=== PATIENT | male | born 1980 | race Caucasian/White ===

== ENCOUNTER 2020-04-01 23:36 | Inpatient (IN) | payer BC, SELFPAY ==
[2020-04-01] MEDS ORDERED: Boostrix 0.5 ML (Tdap) VIAL ONE (23:45)
[2020-04-01] MEDS ORDERED: Calcium Chloride 1 GM/10 ML Abboject SYRINGE ONE (23:50)
[2020-04-01 23:55] LABS: #Basophils 0.1 thou/uL (0.0-0.2); #Eosinphils 0.4 thou/uL (0.0-0.7); #Lymphocytes 3.3 thou/uL (1.20-3.40); #Monocytes 0.4 thou/uL (0.11-0.59); #Neutrophils 3.4 thou/uL (1.40-6.50); %Eosinophils 5.4 % (0.0-10.0); %Lymphocytes 43.3 % (21.0-51.0); %Neutrophils 45.2 % (42.0-75.0); Mean Corpuscular HGB CONC 33.7 g/dL (32.0-36.0); Mean Corpuscular Hemoglobin 33.3 pg (27.0-31.0); Mean Corpuscular Volume 98.8 fL (78.0-98.0); Mean Platelet Volume 8.3 fL (7.4-10.4); Platelet Count 163 thou/uL (130-400); RBC Distribution Width 13.1 % (11.5-14.5); Red Blood Cell (RBC) Count 3.91 mill/uL (4.70-6.10); White Blood Cell (WBC) Count 7.5 thou/uL (4.8-10.8)
[2020-04-02] MEDS ORDERED: Dextrose 5% in Water 1,000 ML IV PRN (00:02)
[2020-04-02] MEDS ORDERED: Dextrose 50% Abboject 50 ML SYRINGE SLOW IVP PRN (00:02)
[2020-04-02 00:06] LABS: INR-International Normal Ratio 1.2; PTT 24.7 sec (22.9-36.1); Prothrombin Time 15.7 sec (12.0-14.7)
[2020-04-02 00:11] LABS: ALT (SGPT) 13 U/L (8-55); AST (SGOT) 17 U/L (5-34); Albumin 2.3 g/dL (3.5-5.0); Alkaline Phosphatase 46 U/L (40-110); Anion Gap 19 mmol/L (10-20); BUN (Urea Nitrogen) 12 mg/dL (8.9-20.6); Bilirubin, Total Less than 0.2 mg/dL (0.2-1.2); Calc. Creatinine Clearance 0 mL/min (70-130); Calcium 6.8 mg/dL (7.8-10.44); Carbon Dioxide 14 mmol/L (22-29); Chloride 112 mmol/L (98-107); Globulin 1.4 g/dL (2.4-3.5); Glucose 254 mg/dL (70-105); Potassium 5.4 mmol/L (3.5-5.1); Protein, Total 3.7 g/dL (6.0-8.3); Sodium 140 mmol/L (136-145)
[2020-04-02 00:14] LABS: Lactic Acid 6.8 mmol/L (0.5-2.2)
[2020-04-02] MEDS ORDERED: Heparin 10,000 UNITS/ 10 ML VIAL ONE ×2 (00:17→03:05)
[2020-04-02 00:33] LABS: Bacteria/HPF None Seen HPF (None Seen); Bilirubin Negative (Negative); Blood, Urine Negative (Negative); Clarity Clear (Clear); Glucose, Urine (Dipstick) Normal (Negative); Ketone, Urine Negative (Negative); Leukocyte Negative Leu/uL (Negative); Nitrite Negative (Negative); Protein, Urine (Dipstick) Negative (Neg-Trace); RBC/HPF 0-3 HPF (0-3); Specific Gravity, Urine 1.002 (1.002-1.036); Squamous Epithelial None Seen HPF (0-3); Urobilinogen Normal mg/dL (Less than 2); WBC/HPF None Seen HPF (0-3); pH, Urine 6.5 (5.0-9.0)
[2020-04-02] MEDS ORDERED: Sodium Bicarb 50 MEQ/50 ML Abboject 8.4% SYRINGE ONE (00:42)
[2020-04-02] MEDS ORDERED: Heparin 5,000 UNITS/ML VIAL ONE (00:47)
[2020-04-02] MEDS ORDERED: PHENYLEPHRINE-NS 100 MCG/ML 10 ML SYRINGE ONE ×2 (01:14→10:34)
[2020-04-02] MEDS ORDERED: Vecuronium 10 MG VIAL ONE ×6 (01:14→10:34)
[2020-04-02] MEDS ORDERED: Phenylephrine 10 MG/ML VIAL ONE (01:15)
[2020-04-02 01:35] LABS: SARS-CoV-2 NAA Rapid Test Not Detected (NotDetected)
[2020-04-02 01:44] LABS: Amphetamine Not Detected (NotDetected); Barbiturates Screen Not Detected (NotDetected); Benzodiazepine Screen Not Detected (NotDetected); Cocaine Metabolite Screen Not Detected (NotDetected); Medtox Control Line Valid? VALID (VALID); Medtox Reader # READER 4; Methadone Not Detected (NotDetected); Methamphetamine Not Detected (NotDetected); Opiate Screen Not Detected (NotDetected); Oxycodone Screen Not Detected (NotDetected); Phencyclidine (PCP) Not Detected (NotDetected); THC/Cannabinoid Screen Not Detected (NotDetected); Tricyclic Screen Not Detected (NotDetected)
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
[2020-04-02] MEDS ORDERED: Fentanyl 250 MCG/5 ML VIAL ONE (02:35)
[2020-04-02] MEDS ORDERED: Midazolam HCl 5 mg/5 ml Vial ONE ×2 (02:36→05:46)
[2020-04-02] MEDS ORDERED: Norepinephrine 4 MG/4 ML VIAL ONE (03:00)
[2020-04-02] MEDS ORDERED: Ventilator Sedation Protocol 1 EACH FS SCH (04:14)
[2020-04-02] MEDS ORDERED: Fentanyl CADD 100 ML IV SCH (04:15)
[2020-04-02] MEDS ORDERED: Morphine 2 MG/ML VIAL SLOW IVP PRN (04:15)
[2020-04-02] MEDS ORDERED: DISCONTINUE PREVIOUS NARCOTIC PAIN MEDICATIONS AND BENZODIAZEPINES FS SCH (04:15)
[2020-04-02] MEDS ORDERED: Propofol BOLUS 1,000 MG/100 ML VIAL IV PRN (04:15)
[2020-04-02] MEDS ORDERED: Fentanyl BOLUS 250 ML IVPB PRN (04:15)
[2020-04-02] MEDS ORDERED: Propofol 1,000 MG/100 ML VIAL IV PRN (04:15)
[2020-04-02] MEDS ORDERED: Lorazepam 2 MG/ML VIAL SLOW IVP PRN (04:15)
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
[2020-04-02] MEDS ORDERED: Fentanyl 100 MCG/2 ML VIAL ONE (05:46)
[2020-04-02] MEDS ORDERED: Fentanyl CADD 100 ML ONE ×2 (06:59→22:52)
[2020-04-02] MEDS: Sodium Chloride 0.9% 1,000 ML IV SCH ×4 (07:08→22:54)
[2020-04-02 07:33] LABS: Anion Gap 13 mmol/L (10-20); BUN (Urea Nitrogen) 11 mg/dL (8.9-20.6); Calc. Creatinine Clearance 0 mL/min (70-130); Calcium 7.3 mg/dL (7.8-10.44); Carbon Dioxide 22 mmol/L (22-29); Chloride 111 mmol/L (98-107); Glucose 124 mg/dL (70-105); Potassium 3.9 mmol/L (3.5-5.1); Sodium 142 mmol/L (136-145)
--- NOTE | 2020-04-02 07:44 | RAD ---
PORTABLE CHEST: Date: 04/02/2020 PROVIDED CLINICAL HISTORY: Respiratory failure. FINDINGS: Comparison made with examination of 04/01/2020. Interval placement of two left-sided chest tubes. The more inferiorly located chest tube is not entir sissy included, with nonvisualization of the proximal side hole lucency, which could be extrathoracic. Support apparatus is otherwise unchanged. No focal consolidation, pleural fluid, or pneumothorax appa rent with rotation due to the spine nature of the study. IMPRESSION: Chest tube positioning as described. POS: LORENZO
[2020-04-02 07:47] VITALS: BMI 26.5
[2020-04-02 08:41] LABS: Hemoglobin 11.1 g/dL (14.0-18.0); Mean Corpuscular HGB CONC 34.8 g/dL (32.0-36.0); Mean Corpuscular Hemoglobin 31.6 pg (27.0-31.0); Mean Corpuscular Volume 90.6 fL (78.0-98.0); Mean Platelet Volume 8.7 fL (7.4-10.4); Platelet Count 70 thou/uL (130-400); RBC Distribution Width 15.2 % (11.5-14.5); Red Blood Cell (RBC) Count 3.51 mill/uL (4.70-6.10); White Blood Cell (WBC) Count 3.7 thou/uL (4.8-10.8)
[2020-04-02] MEDS: Famotidine/PF 20 mg/2ml Vial SLOW IVP SCH ×2 (08:58→20:13)
[2020-04-02 09:46] LABS: INR-International Normal Ratio 1.2; PTT 28.6 sec (22.9-36.1); Prothrombin Time 15.2 sec (12.0-14.7)
--- NOTE | 2020-04-02 09:49 | RAD ---
PORTABLE CHEST: 04/02/20 PROVIDED CLINICAL HISTORY: Post central line. COMPARISON: Examination from earlier same date. FINDINGS: Interval placement of left-sided subclavian central line, the tip of which terminates in the region o f the expected brachiocephalic confluence. The supine nature of the examination is not sensitive for detection of pneumothorax. The right hemithorax is not entirely included. Additional significant inte rval change with respect to prior is not apparent. IMPRESSION: As above. POS: LORENZO
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
[2020-04-02] MEDS ORDERED: Piperacillin/Tazobactam 3.375 GM in Sodium Chloride 0.9% 100 ML IVPB SCH (10:45)
[2020-04-02 11:04] LABS: #Lymphocytes 0.5 thou/uL (1.20-3.40); #Monocytes 0.4 thou/uL (0.11-0.59); #Neutrophils 2.8 thou/uL (1.40-6.50); %Basophils 0.2 % (0.0-1.0); %Eosinophils 0.4 % (0.0-10.0); %Lymphocytes 14.4 % (21.0-51.0); %Monocytes 9.7 % (0.0-10.0); %Neutrophils 75.4 % (42.0-75.0); Anisocytosis SLIGHT = 6-15 cells (100X) (0-5/hpf); MDiff Complete? YES; Platelet Morphology Comment Appears Decreased
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
[2020-04-02] MEDS ORDERED: Lactated Ringer's 1,000 ML IV SCH (13:15)
[2020-04-02 13:45] LABS: Hemoglobin 11.1 g/dL (14.0-18.0); Mean Corpuscular HGB CONC 34.2 g/dL (32.0-36.0); Mean Corpuscular Hemoglobin 30.9 pg (27.0-31.0); Mean Corpuscular Volume 90.5 fL (78.0-98.0); Mean Platelet Volume 9.4 fL (7.4-10.4); Platelet Count 74 thou/uL (130-400); RBC Distribution Width 15.8 % (11.5-14.5); Red Blood Cell (RBC) Count 3.59 mill/uL (4.70-6.10); White Blood Cell (WBC) Count 8.2 thou/uL (4.8-10.8)
[2020-04-02] MEDS: Piperacillin/Tazobactam 3.375 GM in Sodium Chloride 0.9% 100 ML IVPB SCH ×2 (17:29→23:10)
[2020-04-02 18:23] LABS: Hemoglobin 11.1 g/dL (14.0-18.0); Mean Corpuscular Hemoglobin 31.8 pg (27.0-31.0); Mean Corpuscular Volume 90.9 fL (78.0-98.0); Mean Platelet Volume 9.5 fL (7.4-10.4); Platelet Count 63 thou/uL (130-400); RBC Distribution Width 15.4 % (11.5-14.5); White Blood Cell (WBC) Count 9.5 thou/uL (4.8-10.8)
[2020-04-02] MEDS ORDERED: Hydrocortisone Sod Succ/PF 100 mg/2 ml Vial IVP SCH (21:45)
[2020-04-03 00:20] LABS: Hemoglobin 9.2 g/dL (14.0-18.0); Mean Corpuscular HGB CONC 34.4 g/dL (32.0-36.0); Mean Corpuscular Hemoglobin 31.4 pg (27.0-31.0); Mean Corpuscular Volume 91.1 fL (78.0-98.0); Mean Platelet Volume 9.9 fL (7.4-10.4); Platelet Count 63 thou/uL (130-400); RBC Distribution Width 15.7 % (11.5-14.5); Red Blood Cell (RBC) Count 2.94 mill/uL (4.70-6.10); White Blood Cell (WBC) Count 9.5 thou/uL (4.8-10.8)
[2020-04-03 04:58] LABS: Anion Gap 11 mmol/L (10-20); BUN (Urea Nitrogen) 20 mg/dL (8.9-20.6); Calc. Creatinine Clearance 102 mL/min (70-130); Calcium 6.5 mg/dL (7.8-10.44); Carbon Dioxide 26 mmol/L (22-29); Chloride 111 mmol/L (98-107); Glucose 132 mg/dL (70-105); Magnesium 1.3 mg/dL (1.6-2.6); Phosphorus 2.5 mg/dL (2.3-4.7); Potassium 4.7 mmol/L (3.5-5.1); Sodium 143 mmol/L (136-145)
[2020-04-03] MEDS: Sodium Chloride 0.9% 1,000 ML IV SCH ×3 (05:30→17:24)
[2020-04-03] MEDS: Piperacillin/Tazobactam 3.375 GM in Sodium Chloride 0.9% 100 ML IVPB SCH ×4 (05:46→23:20)
[2020-04-03] MEDS: Hydrocortisone Sod Succ/PF 100 mg/2 ml Vial IVP SCH ×3 (05:46→21:57)
[2020-04-03 05:50] LABS: Band 32 % (5-11); Hemoglobin 8.5 g/dL (14.0-18.0); Lymphocytes 7 % (21-51); MDiff Complete? YES; Mean Corpuscular HGB CONC 33.6 g/dL (32.0-36.0); Mean Corpuscular Volume 92.2 fL (78.0-98.0); Mean Platelet Volume 10.2 fL (7.4-10.4); Metamyelocyte 2 % (0-0); Monocytes 4 % (0-10); Myelocyte 1 % (0-0); Neutrophil 54 % (42-75); Platelet Count 65 thou/uL (130-400); Platelet Morphology Comment Appears Decreased; Red Blood Cell (RBC) Count 2.75 mill/uL (4.70-6.10); White Blood Cell (WBC) Count 8.7 thou/uL (4.8-10.8)
[2020-04-03] MEDS ORDERED: Magnesium Sulfate 3 GM in Sodium Chloride 0.9% 250 ML 250 ML IVPB SCH (06:00)
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
[2020-04-03] MEDS: Famotidine/PF 20 mg/2ml Vial SLOW IVP SCH ×2 (08:12→21:57)
--- NOTE | 2020-04-03 08:28 | RAD ---
Portable frontal chest radiograph: 04/03/2020 COMPARISON: 04/02/2020 HISTORY: Respiratory failure FINDINGS: There are cutaneous clarissa overlying the inferior left hemithorax/left upper quadrant. The re are 2 left-sided chest tubes in place. There is no pneumothorax seen on either side. Stable endotracheal tube and nasogastric tube. Stable nonspecific increased density in the medial left lung base. IMPRESSION: No significant interval change.
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
[2020-04-03] MEDS ORDERED: Fentanyl CADD 100 ML ONE (17:19)
[2020-04-03 22:09] LABS: #Lymphocytes 0.9 thou/uL (1.20-3.40); #Monocytes 0.4 thou/uL (0.11-0.59); #Neutrophils 6.1 thou/uL (1.40-6.50); %Basophils 0.3 % (0.0-1.0); %Eosinophils 0.1 % (0.0-10.0); %Monocytes 4.9 % (0.0-10.0); %Neutrophils 82.6 % (42.0-75.0); Hemoglobin 7.4 g/dL (14.0-18.0); Mean Corpuscular HGB CONC 34.2 g/dL (32.0-36.0); Mean Corpuscular Hemoglobin 31.7 pg (27.0-31.0); Mean Corpuscular Volume 92.9 fL (78.0-98.0); Mean Platelet Volume 9.6 fL (7.4-10.4); Platelet Count 59 thou/uL (130-400); RBC Distribution Width 15.6 % (11.5-14.5); Red Blood Cell (RBC) Count 2.33 mill/uL (4.70-6.10); White Blood Cell (WBC) Count 7.4 thou/uL (4.8-10.8)
[2020-04-03 22:36] LABS: Anion Gap 9 mmol/L (10-20); BUN (Urea Nitrogen) 16 mg/dL (8.9-20.6); Calc. Creatinine Clearance 109 mL/min (70-130); Carbon Dioxide 25 mmol/L (22-29); Chloride 116 mmol/L (98-107); Glucose 103 mg/dL (70-105); Magnesium 2.1 mg/dL (1.6-2.6); Phosphorus 1.2 mg/dL (2.3-4.7); Potassium 4.1 mmol/L (3.5-5.1); Sodium 146 mmol/L (136-145)
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
[2020-04-03] MEDS: Lactated Ringer's 1,000 ML IV SCH (23:10)
[2020-04-03] MEDS ORDERED: Potassium Phosphate 20 MMOL in Sodium Chloride 0.9% 250 ML 250 ML IVPB SCH (23:30)
[2020-04-04 05:10] LABS: #Lymphocytes 0.8 thou/uL (1.20-3.40); #Monocytes 0.4 thou/uL (0.11-0.59); #Neutrophils 5.6 thou/uL (1.40-6.50); %Basophils 0.1 % (0.0-1.0); %Eosinophils 0.2 % (0.0-10.0); %Lymphocytes 11.3 % (21.0-51.0); %Monocytes 5.4 % (0.0-10.0); %Neutrophils 83.1 % (42.0-75.0); Hemoglobin 7.9 g/dL (14.0-18.0); Mean Corpuscular HGB CONC 30.7 g/dL (32.0-36.0); Mean Corpuscular Hemoglobin 29.2 pg (27.0-31.0); Mean Corpuscular Volume 95.3 fL (78.0-98.0); Mean Platelet Volume 9.9 fL (7.4-10.4); Platelet Count 56 thou/uL (130-400); RBC Distribution Width 15.6 % (11.5-14.5); White Blood Cell (WBC) Count 6.7 thou/uL (4.8-10.8)
[2020-04-04 05:54] LABS: Anion Gap 9 mmol/L (10-20); BUN (Urea Nitrogen) 16 mg/dL (8.9-20.6); Calc. Creatinine Clearance 125 mL/min (70-130); Calcium 7.3 mg/dL (7.8-10.44); Carbon Dioxide 26 mmol/L (22-29); Chloride 113 mmol/L (98-107); Glucose 98 mg/dL (70-105); Magnesium 2.2 mg/dL (1.6-2.6); Phosphorus 1.7 mg/dL (2.3-4.7); Potassium 4.2 mmol/L (3.5-5.1); Sodium 144 mmol/L (136-145)
[2020-04-04] MEDS: Hydrocortisone Sod Succ/PF 100 mg/2 ml Vial IVP SCH ×3 (06:15→21:01)
[2020-04-04] MEDS ORDERED: Sodium Phosphate 30 MMOL in Sodium Chloride 0.9% 250 ML 250 ML IVPB SCH (06:15)
[2020-04-04] MEDS: Piperacillin/Tazobactam 3.375 GM in Sodium Chloride 0.9% 100 ML IVPB SCH ×3 (06:16→17:50)
[2020-04-04] MEDS: Lactated Ringer's 1,000 ML IV SCH ×3 (06:26→22:41)
[2020-04-04] MEDS: Famotidine/PF 20 mg/2ml Vial SLOW IVP SCH ×2 (08:26→21:00)
[2020-04-04] MEDS ORDERED: Thiamine HCl 200 MG/2 ML VIAL SLOW IVP SCH (09:00)
[2020-04-04] MEDS ORDERED: Rocuronium Bromide 10 MG/ML (10ML VIAL) ONE (09:13)
[2020-04-04] MEDS ORDERED: ePHEDrine 50 MG/ML VIAL ONE (09:13)
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
[2020-04-04] MEDS ORDERED: Fentanyl 100 MCG/2 ML VIAL ONE (10:28)
[2020-04-04] MEDS ORDERED: Midazolam HCl 5 mg/5 ml Vial ONE (10:32)
[2020-04-04] MEDS ORDERED: Fentanyl CADD 100 ML ONE (14:22)
[2020-04-04] MEDS: Oxazepam 10 MG CAP PO SCH ×2 (14:25→21:01)
--- NOTE | 2020-04-04 14:59 | RAD ---
Exam: 1 view abdomen HISTORY: Evaluate Dobbhoff feeding tube placement COMPARISON: 04/04/2020 chest radiograph FINDINGS: Interval placement of a Dobbhoff feeding tube. Cyst appears be in the proximal jejunum. James ogastric tube is identified. IMPRESSION: Dobbhoff feeding tube as above.
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
[2020-04-05] MEDS: Piperacillin/Tazobactam 3.375 GM in Sodium Chloride 0.9% 100 ML IVPB SCH ×5 (00:30→23:56)
[2020-04-05 05:50] LABS: #Lymphocytes 0.6 thou/uL (1.20-3.40); #Monocytes 0.3 thou/uL (0.11-0.59); #Neutrophils 4.1 thou/uL (1.40-6.50); %Basophils 0.3 % (0.0-1.0); %Eosinophils 0.8 % (0.0-10.0); %Lymphocytes 12.5 % (21.0-51.0); %Monocytes 6.4 % (0.0-10.0); Hemoglobin 9.6 g/dL (14.0-18.0); Mean Corpuscular Hemoglobin 31.3 pg (27.0-31.0); Mean Corpuscular Volume 94.9 fL (78.0-98.0); Mean Platelet Volume 10.2 fL (7.4-10.4); Platelet Count 71 thou/uL (130-400); RBC Distribution Width 15.3 % (11.5-14.5); Red Blood Cell (RBC) Count 3.06 mill/uL (4.70-6.10); White Blood Cell (WBC) Count 5.1 thou/uL (4.8-10.8)
[2020-04-05 06:05] LABS: Anion Gap 11 mmol/L (10-20); BUN (Urea Nitrogen) 14 mg/dL (8.9-20.6); Calc. Creatinine Clearance 152 mL/min (70-130); Calcium 7.3 mg/dL (7.8-10.44); Carbon Dioxide 27 mmol/L (22-29); Chloride 112 mmol/L (98-107); Glucose 105 mg/dL (70-105); Potassium 3.9 mmol/L (3.5-5.1); Sodium 146 mmol/L (136-145)
[2020-04-05] MEDS: Oxazepam 10 MG CAP PO SCH ×3 (06:11→21:26)
[2020-04-05] MEDS: Hydrocortisone Sod Succ/PF 100 mg/2 ml Vial IVP SCH (06:13)
[2020-04-05] MEDS: Lactated Ringer's 1,000 ML IV SCH (06:19)
[2020-04-05 06:25] LABS: Phosphorus 1.4 mg/dL (2.3-4.7)
[2020-04-05] MEDS ORDERED: Potassium Phosphate 30 MMOL in Sodium Chloride 0.9% 250 ML 250 ML IVPB SCH (06:34)
[2020-04-05] MEDS: Famotidine/PF 20 mg/2ml Vial SLOW IVP SCH (08:25)
[2020-04-05] MEDS: Folic Acid 1 MG TAB PO SCH (08:25)
[2020-04-05] MEDS: Multivitamin W/ Minerals 1 TAB PO SCH (08:25)
[2020-04-05] MEDS: Thiamine 100 MG TAB PO SCH (08:25)
--- NOTE | 2020-04-05 08:37 | RAD ---
CHEST 1 VIEW: Date: 04/05/2020 INDICATION: History of left-sided chest tubes. COMPARISON: Prior exam dated 04/04/2020. FINDINGS: Left-sided thoracostomy tubes are unchanged. No pneumothorax is evident. The patient remains intubate d with gastric catheter placement. There has been interval placement of a Dobbhoff feeding tube tip t hat projects below the left hemidiaphragm and beyond the field of view. Osseous structures reveal no definite acute abnormality. IMPRESSION: 1. Stable left-sided thoracostomy tubes without evidence of pneumothorax. 2. Interval placement of Dobbhoff feeding tube tip. 3. ET tube and gastric catheter are unchanged. POS: [facility]
[2020-04-05] MEDS: Famotidine 20 MG TAB PO SCH ×2 (09:09→21:26)
[2020-04-05] MEDS: Enoxaparin Sodium 40 MG/0.4 ML SYRINGE SC SCH (09:13)
[2020-04-05] MEDS ORDERED: Hydrochlorothiazide 25 MG TAB PO SCH (10:15)
[2020-04-05] MEDS ORDERED: Furosemide 20 MG/2 ML VIAL SLOW IVP SCH (10:15)
[2020-04-05] MEDS ORDERED: D5 1/2 NS w/20 mEq KCL 1,000 ML IV SCH (10:15)
[2020-04-05] MEDS: D5 1/2 NS w/20 mEq KCL 1,000 ML IV SCH ×2 (10:24→23:57)
[2020-04-05] MEDS: Acetaminophen 650 MG/20.3 ML UDCUP PO SCH ×3 (11:28→23:55)
[2020-04-05] MEDS ORDERED: Naloxone HCl 0.4 mg/ml Vial ONE (11:41)
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
[2020-04-05 12:42] LABS: Actual Bicarbonate (HCO3a) 33.9 mEq/L (22-28); Base Excess (BEa) 1.8 mEq/L (-2.0 to +3.0); Calcium, Ionized (arterial) 1.01 mmol/L (1.12-1.30); Carboxyhemoglobin (COHb) 0.6 gm% (0.0-3.0); Hemoglobin (Hb) 9.6 g/dL (14.0-18.0); O2 Tension (PaO2), arterial 89.9 mmHg (80.0-100.0); Potassium - ABG Lab 4.27 mmol/L (3.70-5.30); pH, Arterial 7.07 (7.35-7.45)
[2020-04-05 12:43] LABS: Puncture Site Arterial Line
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
--- NOTE | 2020-04-05 23:06 | PDOC.BPN ---
- Brief Progress Note Encounter Date: 04/05/20 Encounter Time: 20:30 Patient was seen during evening rounds in the critical care unit resting comfortably in no distress. He was extubated earlier today and became difficult to arouse requiring Narcan. He improved with a short period of Bipap. No issues reported by the patients nurse. He arouses easily but falls back asleep. Vital signs are stable and patient is afebrile. Urinary output is adequate for age and weight. Abdominal Vac is working appropriately . His abdomen is distended but soft without any peritoneal signs. Plan of care is unchanged Early in the morning was notified by the nurse that he pulled out his dobhoff tube but his NGT remained in place.
[2020-04-06] MEDS: Ondansetron PF 4 MG/2 ML Vial IVP PRN (03:08)
[2020-04-06] MEDS: Piperacillin/Tazobactam 3.375 GM in Sodium Chloride 0.9% 100 ML IVPB SCH ×4 (05:19→23:24)
[2020-04-06] MEDS: Acetaminophen 650 MG/20.3 ML UDCUP PO SCH ×2 (05:19→13:17)
[2020-04-06] MEDS: Oxazepam 10 MG CAP PO SCH ×3 (05:20→19:12)
[2020-04-06 07:31] LABS: #Eosinphils 0.1 thou/uL (0.0-0.7); #Lymphocytes 0.8 thou/uL (1.20-3.40); #Monocytes 0.8 thou/uL (0.11-0.59); #Neutrophils 7.2 thou/uL (1.40-6.50); %Eosinophils 1.5 % (0.0-10.0); %Lymphocytes 8.4 % (21.0-51.0); Hemoglobin 8.1 g/dL (14.0-18.0); Mean Corpuscular HGB CONC 34.2 g/dL (32.0-36.0); Mean Corpuscular Hemoglobin 33.6 pg (27.0-31.0); Mean Corpuscular Volume 98.1 fL (78.0-98.0); Platelet Count 122 thou/uL (130-400); RBC Distribution Width 14.9 % (11.5-14.5); White Blood Cell (WBC) Count 8.9 thou/uL (4.8-10.8)
[2020-04-06 07:43] LABS: Anion Gap 10 mmol/L (10-20); BUN (Urea Nitrogen) 17 mg/dL (8.9-20.6); Calc. Creatinine Clearance 152 mL/min (70-130); Calcium 7.7 mg/dL (7.8-10.44); Carbon Dioxide 31 mmol/L (22-29); Chloride 112 mmol/L (98-107); Glucose 111 mg/dL (70-105); Magnesium 2.1 mg/dL (1.6-2.6); Phosphorus 1.9 mg/dL (2.3-4.7); Potassium 3.9 mmol/L (3.5-5.1); Sodium 149 mmol/L (136-145)
[2020-04-06] MEDS ORDERED: Dextrose 5% in Water 1,000 ML IV SCH (08:15)
[2020-04-06] MEDS ORDERED: Potassium Phosphate 30 MMOL in Sodium Chloride 0.9% 250 ML 250 ML IVPB SCH (08:15)
--- NOTE | 2020-04-06 08:31 | RAD ---
Exam: Chest one view HISTORY:Left chest tube placement. Comparison: 04/04/2020, 04/05/2020 FINDINGS: Lines and tubes: Redemonstration of a nasogastric tube and Dobbhoff feeding tube. Stable 2 left-sided chest tube. Interval removal of endotracheal tube. Cardiac silhouette: Normal Aorta: Unremarkable Pulmonary vessels: Normal Costophrenic angles: Left-sided pleural effusion LUNGS: Parenchymal changes predominantly in the lung bases, left greater than right Pneumothorax: None Osseous abnormalities: None IMPRESSION: No significant interval change.
[2020-04-06] MEDS: Enoxaparin Sodium 40 MG/0.4 ML SYRINGE SC SCH (09:54)
[2020-04-06] MEDS: Famotidine 20 MG TAB PO SCH ×3 (09:55→20:16)
[2020-04-06] MEDS: Thiamine 100 MG TAB PO SCH ×2 (09:55→13:17)
[2020-04-06] MEDS: Folic Acid 1 MG TAB PO SCH ×2 (09:55→13:17)
[2020-04-06] MEDS: Multivitamin W/ Minerals 1 TAB PO SCH ×2 (09:55→13:17)
[2020-04-06] MEDS: Hydrochlorothiazide 25 MG TAB PO SCH ×2 (09:55→13:17)
[2020-04-06] MEDS ORDERED: Haloperidol Lactate 5 MG/ML VIAL ONE (12:58)
[2020-04-06] MEDS ORDERED: Haloperidol Lactate 5 MG/ML VIAL IM SCH (13:00)
[2020-04-06] MEDS: Dextrose 5% in Water 1,000 ML IV SCH (15:04)
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
[2020-04-06 17:20] LABS: #Basophils 0.1 thou/uL (0.0-0.2); #Lymphocytes 0.8 thou/uL (1.20-3.40); #Monocytes 0.7 thou/uL (0.11-0.59); %Basophils 0.7 % (0.0-1.0); %Eosinophils 0.4 % (0.0-10.0); %Lymphocytes 10.3 % (21.0-51.0); %Monocytes 9.6 % (0.0-10.0); Hemoglobin 7.7 g/dL (14.0-18.0); Mean Corpuscular HGB CONC 32.4 g/dL (32.0-36.0); Mean Corpuscular Hemoglobin 31.3 pg (27.0-31.0); Mean Corpuscular Volume 96.6 fL (78.0-98.0); Mean Platelet Volume 9.2 fL (7.4-10.4); Platelet Count 138 thou/uL (130-400); RBC Distribution Width 15.1 % (11.5-14.5); Red Blood Cell (RBC) Count 2.46 mill/uL (4.70-6.10); White Blood Cell (WBC) Count 7.6 thou/uL (4.8-10.8)
[2020-04-06] MEDS ORDERED: Lorazepam 2 MG/ML VIAL SLOW IVP SCH (18:15)
--- NOTE | 2020-04-06 18:20 | RAD ---
SUPINE ABDOMEN: 04/06/20 INDICATIONS: NG tube placement. COMPARISON: 04/04/20. FINDING/IMPRESSION: A Dobhoff type feeding tube passes through the EG junction and overlies the right abdomen in the lashanda on of the gastric antrum. Scattered gas and stool throughout the colon. There is some scattered small bowel gas which is nonspe cific. Postop changes with tubes and lines again noted. Apparent drainage tube overlying the left abdomen an d crossing the midline is unchanged in position. POS: AGW
[2020-04-06 18:32] LABS: Anion Gap 10 mmol/L (10-20); BUN (Urea Nitrogen) 15 mg/dL (8.9-20.6); Calc. Creatinine Clearance 144 mL/min (70-130); Calcium 7.6 mg/dL (7.8-10.44); Carbon Dioxide 31 mmol/L (22-29); Chloride 113 mmol/L (98-107); Glucose 127 mg/dL (70-105); Magnesium 2.1 mg/dL (1.6-2.6); Phosphorus 3.1 mg/dL (2.3-4.7); Potassium 3.5 mmol/L (3.5-5.1); Sodium 150 mmol/L (136-145)
[2020-04-06] MEDS ORDERED: Potassium Phosphate 15 MMOL in Sodium Chloride 0.9% 250 ML 250 ML IVPB SCH (18:45)
[2020-04-06] MEDS: RisperDAL Oral Solution 1 MG/ML UDCUP PO SCH (20:43)
--- NOTE | 2020-04-07 00:31 | PDOC.BPN ---
- Brief Progress Note Encounter Date: 04/06/20 Encounter Time: 20:30 Patient was seen during evening rounds in the critical care unit resting comfortably in no distress. He arouses easily but falls back asleep. He denies pain when asked. No issues reported by the patients nurse. Urinary output is adequate for age and weight. Abdomen is soft and wound vac is working appropriately. Vital signs are stable and patient is afebrile. Plan of care is unchanged
[2020-04-07] MEDS: Oxazepam 10 MG CAP PO SCH ×3 (01:14→18:44)
[2020-04-07] MEDS: Dextrose 5% in Water 1,000 ML IV SCH ×3 (02:28→20:17)
[2020-04-07 04:47] LABS: #Eosinphils 0.3 thou/uL (0.0-0.7); #Lymphocytes 1.1 thou/uL (1.20-3.40); #Monocytes 0.8 thou/uL (0.11-0.59); #Neutrophils 5.9 thou/uL (1.40-6.50); %Basophils 0.2 % (0.0-1.0); %Eosinophils 3.4 % (0.0-10.0); %Lymphocytes 13.7 % (21.0-51.0); %Neutrophils 72.8 % (42.0-75.0); Hemoglobin 7.4 g/dL (14.0-18.0); Mean Corpuscular HGB CONC 32.8 g/dL (32.0-36.0); Mean Corpuscular Hemoglobin 31.9 pg (27.0-31.0); Mean Corpuscular Volume 97.3 fL (78.0-98.0); Mean Platelet Volume 9.3 fL (7.4-10.4); Platelet Count 154 thou/uL (130-400); RBC Distribution Width 15.4 % (11.5-14.5); Red Blood Cell (RBC) Count 2.33 mill/uL (4.70-6.10); White Blood Cell (WBC) Count 8.1 thou/uL (4.8-10.8)
[2020-04-07 05:57] LABS: Anion Gap 14 mmol/L (10-20); BUN (Urea Nitrogen) 13 mg/dL (8.9-20.6); Calc. Creatinine Clearance 164 mL/min (70-130); Calcium 7.7 mg/dL (7.8-10.44); Carbon Dioxide 29 mmol/L (22-29); Chloride 111 mmol/L (98-107); Glucose 110 mg/dL (70-105); Phosphorus 2.3 mg/dL (2.3-4.7); Potassium 3.6 mmol/L (3.5-5.1); Sodium 150 mmol/L (136-145)
[2020-04-07] MEDS: Piperacillin/Tazobactam 3.375 GM in Sodium Chloride 0.9% 100 ML IVPB SCH (06:11)
[2020-04-07] MEDS ORDERED: Potassium Phosphate 15 MMOL in Sodium Chloride 0.9% 250 ML 250 ML IVPB SCH (09:00)
[2020-04-07] MEDS ORDERED: Hydrochlorothiazide 25 MG TAB PO SCH (09:00)
[2020-04-07] MEDS ORDERED: Furosemide 20 MG/2 ML VIAL SLOW IVP SCH (09:00)
[2020-04-07] MEDS: Morphine 4 MG/ML VIAL SLOW IVP PRN ×2 (09:32→16:18)
--- NOTE | 2020-04-07 09:37 | RAD ---
CHEST 1 VIEW: HISTORY: Chest tube evaluation. COMPARISON: Radiograph of prior day. FINDINGS: Left-sided thoracostomy tubes are in a similar location. No significant retraction. The more superi or left chest tube tip projects through the left lung apex. The more inferior chest tube on the left has the tip at the posterior left 8th rib. The weighted feeding tube tip is below the diaphragm out of the field of view. Surgical skin clarissa of the left upper quadrant of the abdomen. The enteric suction tube has been removed. There is some left basilar opacity which is very dense. IMPRESSION: 1. Trace left lateral pneumothorax. 2. Dense left basilar opacity with left upper abdominal quadrant skin clarissa, likely postsurgical c hange versus atelectasis. 3. Removal of the enteric suction tube. POS: HOME
[2020-04-07] MEDS: cloNIDine 0.1 MG TAB PO SCH ×3 (09:41→21:27)
[2020-04-07] MEDS: Folic Acid 1 MG TAB PO SCH (09:42)
[2020-04-07] MEDS: Famotidine 20 MG TAB PO SCH ×2 (09:42→20:09)
[2020-04-07] MEDS: Enoxaparin Sodium 40 MG/0.4 ML SYRINGE SC SCH (09:43)
[2020-04-07] MEDS: Thiamine 100 MG TAB PO SCH (09:43)
[2020-04-07] MEDS: Multivitamin W/ Minerals 1 TAB PO SCH (09:43)
[2020-04-07] MEDS: Acetaminophen W/ Codeine 5 ML UDCUP PO SCH ×3 (09:52→21:27)
[2020-04-07] MEDS: RisperDAL Oral Solution 1 MG/ML UDCUP PO SCH ×2 (10:23→20:10)
[2020-04-07] MEDS ORDERED: Acetaminophen 650 MG/20.3 ML UDCUP PO SCH (12:00)
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
--- NOTE | 2020-04-08 01:07 | PDOC.BPN ---
- Brief Progress Note Encounter Date: 04/07/20 Encounter Time: 22:15 Patient was seen during evening rounds in the critical care unit awake, alert to person, place and year. He is restless in 4 point soft restraints for safety. Nurse reports he has been hallucinating. Vital signs are stable, highest temp 99.8. Plan of care is unchanged Later in the night the pt became combative and broke through the restraints. Haldol was given.
[2020-04-08] MEDS: Oxazepam 10 MG CAP PO SCH (01:09)
[2020-04-08] MEDS: Morphine 4 MG/ML VIAL SLOW IVP PRN ×3 (01:28→21:28)
[2020-04-08] MEDS ORDERED: Haloperidol Lactate 5 MG/ML VIAL SLOW IVP SCH (03:00)
[2020-04-08 04:19] LABS: #Eosinphils 0.4 thou/uL (0.0-0.7); #Lymphocytes 1.2 thou/uL (1.20-3.40); #Monocytes 0.8 thou/uL (0.11-0.59); #Neutrophils 5.6 thou/uL (1.40-6.50); %Basophils 0.1 % (0.0-1.0); %Eosinophils 4.7 % (0.0-10.0); %Lymphocytes 15.4 % (21.0-51.0); %Monocytes 9.5 % (0.0-10.0); %Neutrophils 70.3 % (42.0-75.0); Hemoglobin 8.2 g/dL (14.0-18.0); Mean Corpuscular Hemoglobin 31.4 pg (27.0-31.0); Mean Corpuscular Volume 95.4 fL (78.0-98.0); Mean Platelet Volume 9.4 fL (7.4-10.4); Platelet Count 197 thou/uL (130-400); RBC Distribution Width 15.4 % (11.5-14.5); Red Blood Cell (RBC) Count 2.59 mill/uL (4.70-6.10)
[2020-04-08] MEDS: cloNIDine 0.1 MG TAB PO SCH ×4 (04:59→21:03)
[2020-04-08] MEDS: Acetaminophen W/ Codeine 5 ML UDCUP PO SCH ×4 (04:59→21:27)
[2020-04-08 05:15] LABS: Anion Gap 11 mmol/L (10-20); BUN (Urea Nitrogen) 11 mg/dL (8.9-20.6); Calc. Creatinine Clearance 173 mL/min (70-130); Carbon Dioxide 28 mmol/L (22-29); Chloride 103 mmol/L (98-107); Glucose 119 mg/dL (70-105); Magnesium 1.7 mg/dL (1.6-2.6); Phosphorus 2.8 mg/dL (2.3-4.7); Potassium 3.1 mmol/L (3.5-5.1); Sodium 139 mmol/L (136-145)
[2020-04-08] MEDS ORDERED: Magnesium 2 GM/50 ML 2 GM in Premix Bag 1 BAG IVPB SCH (07:45)
[2020-04-08] MEDS ORDERED: Potassium Phosphate 30 MMOL in Sodium Chloride 0.9% 250 ML 250 ML IVPB SCH (07:45)
[2020-04-08] MEDS: Famotidine 20 MG TAB PO SCH ×2 (08:49→20:19)
[2020-04-08] MEDS: Multivitamin W/ Minerals 1 TAB PO SCH (08:49)
[2020-04-08] MEDS: Folic Acid 1 MG TAB PO SCH (08:49)
[2020-04-08] MEDS: Enoxaparin Sodium 40 MG/0.4 ML SYRINGE SC SCH (08:49)
[2020-04-08] MEDS: Thiamine 100 MG TAB PO SCH (08:49)
[2020-04-08] MEDS: RisperDAL Oral Solution 1 MG/ML UDCUP PO SCH ×2 (08:55→20:20)
[2020-04-08] MEDS ORDERED: Oxazepam 10 MG CAP PO SCH ×2 (09:00→15:00)
[2020-04-08] MEDS ORDERED: carBAMazepine 200 MG TAB PO SCH (09:45)
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
--- NOTE | 2020-04-08 15:51 | RAD ---
RADIOGRAPH CHEST 1 VIEW: DATE: 04/07/2020 TIME: 5:00 AM HISTORY: 39-year-old male follow-up chest tubes COMPARISON: 04/07/2020 FINDINGS: 2 left-sided chest tubes, one near base and one at apex. Dobbhoff feeding tube. Elevated left hemidiaphragm. Mild to moderate reticular densities in the left lung, especially base. No pneumothorax. Right lung clear. No cardiomegaly. No interval change. IMPRESSION: No interval change
[2020-04-08] MEDS: carBAMazepine 200 MG TAB PO SCH ×2 (16:12→20:19)
[2020-04-09] MEDS: cloNIDine 0.1 MG TAB PO SCH ×4 (03:37→20:45)
[2020-04-09 03:42] LABS: #Eosinphils 0.4 thou/uL (0.0-0.7); #Lymphocytes 1.3 thou/uL (1.20-3.40); #Monocytes 0.6 thou/uL (0.11-0.59); #Neutrophils 6.6 thou/uL (1.40-6.50); %Eosinophils 4.1 % (0.0-10.0); %Lymphocytes 14.4 % (21.0-51.0); %Neutrophils 74.4 % (42.0-75.0); Hemoglobin 8.2 g/dL (14.0-18.0); Mean Corpuscular HGB CONC 33.3 g/dL (32.0-36.0); Mean Corpuscular Hemoglobin 31.7 pg (27.0-31.0); Mean Corpuscular Volume 95.2 fL (78.0-98.0); Mean Platelet Volume 9.2 fL (7.4-10.4); Platelet Count 244 thou/uL (130-400); RBC Distribution Width 15.5 % (11.5-14.5); Red Blood Cell (RBC) Count 2.58 mill/uL (4.70-6.10); White Blood Cell (WBC) Count 8.9 thou/uL (4.8-10.8)
[2020-04-09] MEDS: Acetaminophen W/ Codeine 5 ML UDCUP PO SCH ×4 (03:47→20:46)
[2020-04-09] MEDS: Morphine 4 MG/ML VIAL SLOW IVP PRN (03:54)
[2020-04-09 04:01] LABS: Anion Gap 11 mmol/L (10-20); BUN (Urea Nitrogen) 14 mg/dL (8.9-20.6); Calc. Creatinine Clearance 162 mL/min (70-130); Calcium 7.6 mg/dL (7.8-10.44); Carbon Dioxide 27 mmol/L (22-29); Chloride 105 mmol/L (98-107); Glucose 108 mg/dL (70-105); Magnesium 2.2 mg/dL (1.6-2.6); Phosphorus 2.7 mg/dL (2.3-4.7); Potassium 3.5 mmol/L (3.5-5.1); Sodium 139 mmol/L (136-145)
[2020-04-09] MEDS ORDERED: Potassium Phosphate 15 MMOL in Sodium Chloride 0.9% 250 ML 250 ML IVPB SCH (07:30)
[2020-04-09] MEDS: carBAMazepine 200 MG TAB PO SCH ×3 (08:28→20:47)
[2020-04-09] MEDS: Enoxaparin Sodium 40 MG/0.4 ML SYRINGE SC SCH (08:28)
[2020-04-09] MEDS: Thiamine 100 MG TAB PO SCH (08:29)
[2020-04-09] MEDS: Famotidine 20 MG TAB PO SCH ×2 (08:29→20:45)
[2020-04-09] MEDS: Multivitamin W/ Minerals 1 TAB PO SCH (08:29)
[2020-04-09] MEDS: Folic Acid 1 MG TAB PO SCH (08:29)
[2020-04-09] MEDS: RisperDAL Oral Solution 1 MG/ML UDCUP PO SCH (09:15)
--- NOTE | 2020-04-09 09:58 | RAD ---
EXAM: Chest one view: HISTORY: Follow-up chest tube placement. COMPARISON: 04/08/2020 FINDINGS: Left chest tube in gastric tube in place. Heart size: Within normal limits. Lungs: Patchy pleural and parenchymal opacity changes in the left base with some left hemidiaphragm e levation. No evidence for significant residual pneumothorax. IMPRESSION: Stable appearance.
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
[2020-04-10] MEDS: Acetaminophen W/ Codeine 5 ML UDCUP PO SCH ×4 (03:06→21:32)
[2020-04-10] MEDS: cloNIDine 0.1 MG TAB PO SCH ×4 (03:09→21:30)
[2020-04-10 03:50] LABS: #Eosinphils 0.3 thou/uL (0.0-0.7); %Monocytes 7.1 % (0.0-10.0)
[2020-04-10 04:03] LABS: #Lymphocytes 1.2 thou/uL (1.20-3.40); #Monocytes 0.8 thou/uL (0.11-0.59); #Neutrophils 8.9 thou/uL (1.40-6.50); %Basophils 0.3 % (0.0-1.0); %Eosinophils 2.6 % (0.0-10.0); %Lymphocytes 10.7 % (21.0-51.0); %Neutrophils 79.4 % (42.0-75.0); Hemoglobin 8.5 g/dL (14.0-18.0); Mean Corpuscular HGB CONC 32.7 g/dL (32.0-36.0); Mean Corpuscular Hemoglobin 31.4 pg (27.0-31.0); Mean Corpuscular Volume 95.9 fL (78.0-98.0); Mean Platelet Volume 9.3 fL (7.4-10.4); Platelet Count 308 thou/uL (130-400); RBC Distribution Width 15.6 % (11.5-14.5); Red Blood Cell (RBC) Count 2.71 mill/uL (4.70-6.10); White Blood Cell (WBC) Count 11.2 thou/uL (4.8-10.8)
[2020-04-10 04:07] LABS: Anion Gap 12 mmol/L (10-20); BUN (Urea Nitrogen) 15 mg/dL (8.9-20.6); Calc. Creatinine Clearance 156 mL/min (70-130); Calcium 7.5 mg/dL (7.8-10.44); Carbon Dioxide 24 mmol/L (22-29); Chloride 106 mmol/L (98-107); Glucose 112 mg/dL (70-105); Phosphorus 2.6 mg/dL (2.3-4.7); Potassium 3.9 mmol/L (3.5-5.1); Sodium 138 mmol/L (136-145)
[2020-04-10] MEDS ORDERED: Potassium Phosphate 15 MMOL in Sodium Chloride 0.9% 250 ML 250 ML IVPB SCH (08:00)
--- NOTE | 2020-04-10 08:35 | RAD ---
Portable frontal chest radiograph: 04/10/2020 COMPARISON: 04/09/2020 HISTORY: Evaluate left chest tube FINDINGS: There are cutaneous clarissa overlying the left humeral head, the left lung base, and the le ft neck. A Dobbhoff tube is present, unchanged. 2 left-sided chest tubes are present, grossly unchanged. No focal consolidation or alveolar edema. Mild patchy opacity noted in the left base. Aera tion within the left base has improved. IMPRESSION: Improving aeration within the left base-otherwise unchanged.
[2020-04-10] MEDS: Enoxaparin Sodium 40 MG/0.4 ML SYRINGE SC SCH (08:49)
[2020-04-10] MEDS: Famotidine 20 MG TAB PO SCH ×2 (08:50→21:31)
[2020-04-10] MEDS: Multivitamin W/ Minerals 1 TAB PO SCH (08:50)
[2020-04-10] MEDS: Thiamine 100 MG TAB PO SCH (08:51)
[2020-04-10] MEDS: Folic Acid 1 MG TAB PO SCH (08:51)
[2020-04-10] MEDS: carBAMazepine 200 MG TAB PO SCH ×3 (08:51→21:31)
[2020-04-10] MEDS: Senokot S 8.6-50 MG TAB PO SCH ×2 (12:13→21:30)
[2020-04-10] MEDS ORDERED: traMADol HCl 50 MG TAB PO PRN ×2 (23:04)
[2020-04-11] MEDS: cloNIDine 0.1 MG TAB PO SCH ×4 (03:41→19:57)
[2020-04-11] MEDS: Acetaminophen 500 MG TAB PO SCH ×5 (05:00→23:32)
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
[2020-04-11 07:13] LABS: Hemoglobin 8.9 g/dL (14.0-18.0); Mean Corpuscular HGB CONC 30.9 g/dL (32.0-36.0); Mean Corpuscular Hemoglobin 29.9 pg (27.0-31.0); Mean Platelet Volume 9.6 fL (7.4-10.4); Platelet Count 411 thou/uL (130-400); Red Blood Cell (RBC) Count 2.96 mill/uL (4.70-6.10); White Blood Cell (WBC) Count 17.8 thou/uL (4.8-10.8)
[2020-04-11 07:23] LABS: Anion Gap 16 mmol/L (10-20); BUN (Urea Nitrogen) 15 mg/dL (8.9-20.6); Calc. Creatinine Clearance 156 mL/min (70-130); Calcium 7.7 mg/dL (7.8-10.44); Carbon Dioxide 21 mmol/L (22-29); Chloride 104 mmol/L (98-107); Glucose 85 mg/dL (70-105); Magnesium 1.8 mg/dL (1.6-2.6); Phosphorus 2.8 mg/dL (2.3-4.7); Potassium 3.7 mmol/L (3.5-5.1); Sodium 137 mmol/L (136-145)
[2020-04-11 07:35] LABS: Band 20 % (5-11); Eosinophils 1 % (0-10); Hypochromia SLIGHT = 6-15 cells (100X) (0-5/hpf); Lymphocytes 8 % (21-51); MDiff Complete? YES; Metamyelocyte 2 % (0-0); Monocytes 4 % (0-10); Myelocyte 1 % (0-0); Neutrophil 64 % (42-75); Platelet Morphology Comment Appears Increased; Polychromasia SLIGHT = 2-3 cells (100X) (0-2/hpf)
[2020-04-11] MEDS ORDERED: Magnesium Sulfate 3 GM, Potassium Phosphate 30 MMOL in Sodium Chloride 0.9% 250 ML 250 ML IVPB SCH (09:15)
[2020-04-11] MEDS: Folic Acid 1 MG TAB PO SCH (09:28)
[2020-04-11] MEDS: Multivitamin W/ Minerals 1 TAB PO SCH (09:28)
[2020-04-11] MEDS: carBAMazepine 200 MG TAB PO SCH ×3 (09:29→19:58)
[2020-04-11] MEDS: Thiamine 100 MG TAB PO SCH (09:29)
[2020-04-11] MEDS: Enoxaparin Sodium 40 MG/0.4 ML SYRINGE SC SCH (09:31)
[2020-04-11] MEDS: Senokot S 8.6-50 MG TAB PO SCH ×2 (09:40→19:58)
[2020-04-11] MEDS: Famotidine 20 MG TAB PO SCH ×2 (09:40→19:58)
[2020-04-11 13:51] LABS: Actual Bicarbonate (HCO3a) 15.8 mEq/L (22-28); Analyzer IN Cardio OR; Base Excess (BEa) -13.7 mEq/L (-2.0 to +3.0); CO2 Tension 51.7 mmHg (35.0-45.0); Calcium, Ionized (arterial) 1.17 mmol/L (1.12-1.30); Hemoglobin (Hb) 12.7 g/dL (14.0-18.0); O2 Tension (PaO2), arterial 315.2 mmHg (80.0-100.0); Potassium - ABG Lab 4.19 mmol/L (3.70-5.30)
[2020-04-11 13:51] LABS: Analyzer IN Cardio OR; Base Excess (BEa) -4.6 mEq/L (-2.0 to +3.0); CO2 Tension 40.9 mmHg (35.0-45.0); Calcium, Ionized (arterial) 1.11 mmol/L (1.12-1.30); Carboxyhemoglobin (COHb) 1.7 gm% (0.0-3.0); Hemoglobin (Hb) 11.3 g/dL (14.0-18.0); O2 Tension (PaO2), arterial 99.9 mmHg (80.0-100.0); Potassium - ABG Lab 4.11 mmol/L (3.70-5.30); pH, Arterial 7.33 (7.35-7.45)
[2020-04-11 13:54] LABS: Actual Bicarbonate (HCO3a) 19.4 mEq/L (22-28); Analyzer IN Cardio OR; Base Excess (BEa) -8.4 mEq/L (-2.0 to +3.0); Calcium, Ionized (arterial) 0.98 mmol/L (1.12-1.30); Carboxyhemoglobin (COHb) 0.7 gm% (0.0-3.0); Hemoglobin (Hb) 11.1 g/dL (14.0-18.0); O2 Tension (PaO2), arterial 327.6 mmHg (80.0-100.0); Potassium - ABG Lab 4.76 mmol/L (3.70-5.30)
[2020-04-11 14:21] LABS: Puncture Site Arterial Line
[2020-04-11 14:21] LABS: Puncture Site Arterial Line
[2020-04-11 14:22] LABS: Puncture Site Arterial Line; pH, Arterial 7.21 (7.35-7.45)
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
[2020-04-12] MEDS ORDERED: Melatonin 3 MG TAB PO PRN (00:23)
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
[2020-04-12] MEDS: cloNIDine 0.1 MG TAB PO SCH ×4 (07:27→21:22)
[2020-04-12] MEDS: Acetaminophen 500 MG TAB PO SCH ×3 (07:28→18:43)
[2020-04-12] MEDS: Ondansetron PF 4 MG/2 ML Vial IVP PRN (09:31)
--- NOTE | 2020-04-12 09:50 | RAD ---
Exam: Chest one view HISTORY:Chest 2 Comparison: 04/10/2020 FINDINGS: Lines and tubes: Stable left-sided chest tube oriented towards the apex. Stable second chest tube at the left lung base. Interval removal of Dobbhoff feeding tube. Cardiac silhouette: Normal Aorta: Unremarkable Pulmonary vessels: Normal Costophrenic angles: Clear LUNGS: Assessment diminished left lung volume. Pneumothorax: No definite pneumothorax Osseous abnormalities: No acute osseous abnormalities. Skin clarissa project over the left chest. IMPRESSION: 1. Stable left-sided chest tube. No pneumothorax
[2020-04-12] MEDS: carBAMazepine 200 MG TAB PO SCH (10:13)
[2020-04-12] MEDS: Enoxaparin Sodium 40 MG/0.4 ML SYRINGE SC SCH (10:14)
[2020-04-12] MEDS: Folic Acid 1 MG TAB PO SCH (10:33)
[2020-04-12] MEDS: Thiamine 100 MG TAB PO SCH (10:33)
[2020-04-12] MEDS: Senokot S 8.6-50 MG TAB PO SCH ×2 (10:33→20:34)
[2020-04-12] MEDS: Multivitamin W/ Minerals 1 TAB PO SCH (10:33)
[2020-04-12] MEDS: Famotidine 20 MG TAB PO SCH ×2 (10:34→20:34)
[2020-04-12] MEDS ORDERED: Iopamidol-370 76% 500 ML 1 ML ONE (11:41)
[2020-04-12] MEDS ORDERED: Iopamidol 370 76% 50 ML VIAL FS ONE (11:41)
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
[2020-04-12] MEDS: risperiDONE 1 MG TAB PO SCH (20:35)
[2020-04-12] MEDS: Apixaban 5 MG TAB PO SCH (20:35)
[2020-04-13] MEDS: Acetaminophen 500 MG TAB PO SCH ×4 (00:15→17:36)
[2020-04-13] MEDS: cloNIDine 0.1 MG TAB PO SCH ×4 (03:45→21:10)
[2020-04-13] MEDS: Senokot S 8.6-50 MG TAB PO SCH ×2 (08:28→21:10)
[2020-04-13] MEDS: Thiamine 100 MG TAB PO SCH (08:28)
[2020-04-13] MEDS: Multivitamin W/ Minerals 1 TAB PO SCH (08:28)
[2020-04-13] MEDS: risperiDONE 1 MG TAB PO SCH ×2 (08:29→20:49)
[2020-04-13] MEDS: Famotidine 20 MG TAB PO SCH (08:29)
[2020-04-13] MEDS: Apixaban 5 MG TAB PO SCH ×2 (08:29→20:50)
[2020-04-13] MEDS: Folic Acid 1 MG TAB PO SCH (08:29)
[2020-04-13] MEDS ORDERED: Apixaban 5 MG TAB PO SCH (09:15)
[2020-04-13 09:50] LABS: #Eosinphils 0.1 thou/uL (0.0-0.7); #Lymphocytes 1.2 thou/uL (1.20-3.40); #Monocytes 1.6 thou/uL (0.11-0.59); #Neutrophils 16.3 thou/uL (1.40-6.50); %Basophils 0.1 % (0.0-1.0); %Eosinophils 0.5 % (0.0-10.0); %Lymphocytes 6.1 % (21.0-51.0); %Monocytes 8.3 % (0.0-10.0); Hemoglobin 8.5 g/dL (14.0-18.0); Mean Corpuscular HGB CONC 32.4 g/dL (32.0-36.0); Mean Corpuscular Volume 95.6 fL (78.0-98.0); Mean Platelet Volume 8.9 fL (7.4-10.4); Platelet Count 522 thou/uL (130-400); RBC Distribution Width 15.2 % (11.5-14.5); Red Blood Cell (RBC) Count 2.73 mill/uL (4.70-6.10); White Blood Cell (WBC) Count 19.2 thou/uL (4.8-10.8)
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
[2020-04-13] MEDS: Amoxicillin/Potassium Clav 875 MG TAB PO SCH (20:50)
[2020-04-14] MEDS: Acetaminophen 500 MG TAB PO SCH ×3 (00:13→12:54)
[2020-04-14] MEDS: cloNIDine 0.1 MG TAB PO SCH ×3 (03:45→15:50)
[2020-04-14 05:21] LABS: #Eosinphils 0.1 thou/uL (0.0-0.7); #Lymphocytes 1.1 thou/uL (1.20-3.40); #Monocytes 1.4 thou/uL (0.11-0.59); #Neutrophils 14.2 thou/uL (1.40-6.50); %Basophils 0.1 % (0.0-1.0); %Eosinophils 0.7 % (0.0-10.0); %Lymphocytes 6.8 % (21.0-51.0); %Monocytes 8.3 % (0.0-10.0); %Neutrophils 84.1 % (42.0-75.0); Hemoglobin 8.8 g/dL (14.0-18.0); Mean Corpuscular HGB CONC 30.8 g/dL (32.0-36.0); Mean Corpuscular Hemoglobin 29.5 pg (27.0-31.0); Mean Platelet Volume 8.8 fL (7.4-10.4); Platelet Count 566 thou/uL (130-400); RBC Distribution Width 15.1 % (11.5-14.5); Red Blood Cell (RBC) Count 2.97 mill/uL (4.70-6.10); White Blood Cell (WBC) Count 16.9 thou/uL (4.8-10.8)
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
[2020-04-14 05:34] LABS: Anion Gap 17 mmol/L (10-20); BUN (Urea Nitrogen) 12 mg/dL (8.9-20.6); Calc. Creatinine Clearance 142 mL/min (70-130); Calcium 7.8 mg/dL (7.8-10.44); Carbon Dioxide 20 mmol/L (22-29); Chloride 98 mmol/L (98-107); Glucose 98 mg/dL (70-105); Phosphorus 3.4 mg/dL (2.3-4.7); Potassium 4.1 mmol/L (3.5-5.1); Sodium 131 mmol/L (136-145)
[2020-04-14] MEDS: Amoxicillin/Potassium Clav 875 MG TAB PO SCH (08:49)
[2020-04-14] MEDS: Apixaban 5 MG TAB PO SCH (08:50)
[2020-04-14] MEDS: risperiDONE 1 MG TAB PO SCH (08:51)
[2020-04-14] MEDS: Folic Acid 1 MG TAB PO SCH (08:52)
[2020-04-14] MEDS: Multivitamin W/ Minerals 1 TAB PO SCH (08:52)
[2020-04-14] MEDS: Thiamine 100 MG TAB PO SCH (08:52)
[2020-04-14] MEDS: Senokot S 8.6-50 MG TAB PO SCH (08:53)
[2020-04-14] MEDS ORDERED: Saccharomyces boulardii 250 MG CAP PO SCH (09:00)
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
[2020-04-14] MEDS ORDERED: metroNIDAZOLE 500 MG TAB PO SCH (15:00)
[2020-04-14 15:51] VITALS: TEMP 101
[2020-04-14 15:52] VITALS: BP 115/73
[2020-04-14] MEDS ORDERED: Ciprofloxacin 500 MG TAB PO SCH (20:00)
[2020-04-20] MEDS ORDERED: Apixaban 5 MG TAB PO SCH (21:00)
== END 2020-04-14 17:20 | DRG 957 ==
LOC: ERS 23:36 → EDBD 23:36 → SDC/OP 04-02 00:08 → EEVIPCON 04-02 06:14 → CCU 04-02 06:14 → SURG A 04-09 12:05
PROVIDERS: ADMIT Specialist; ATTEND Specialist
PROC: 0DQ80ZZ Repair Small Intestine, Open Approach (ICD-10-PCS; 2020-04-01)
PROC: 0DQ60ZZ Repair Stomach, Open Approach (ICD-10-PCS; 2020-04-01)
PROC: 0BQT0ZZ Repair Diaphragm, Open Approach (ICD-10-PCS; 2020-04-01)
PROC: 0W3G0ZZ Control Bleeding in Peritoneal Cavity, Open Approach (ICD-10-PCS; 2020-04-01)
PROC: 05HY33Z Insertion of Infusion Device into Upper Vein, Percutaneous Approach (ICD-10-PCS; 2020-04-01)
PROC: 03HB33Z Insertion of Infusion Device into Right Radial Artery, Percutaneous Approach (ICD-10-PCS; 2020-04-01)
PROC: 0W360ZZ Control Bleeding in Neck, Open Approach (ICD-10-PCS; principal; 2020-04-02)
PROC: 0CQM0ZZ Repair Pharynx, Open Approach (ICD-10-PCS; 2020-04-02)
PROC: 0W360ZZ Control Bleeding in Neck, Open Approach (ICD-10-PCS; 2020-04-02)
PROC: 02QC0ZZ Repair Left Heart, Open Approach (ICD-10-PCS; 2020-04-02)
PROC: 02QL0ZZ Repair Left Ventricle, Open Approach (ICD-10-PCS; 2020-04-02)
PROC: 0BH17EZ Insertion of Endotracheal Airway into Trachea, Via Natural or Artificial Opening (ICD-10-PCS; 2020-04-02)
PROC: 5A1945Z Respiratory Ventilation, 24-96 Consecutive Hours (ICD-10-PCS; 2020-04-02)
PROC: 3E033XZ Introduction of Vasopressor into Peripheral Vein, Percutaneous Approach (ICD-10-PCS; 2020-04-02)
PROC: 06HY33Z Insertion of Infusion Device into Lower Vein, Percutaneous Approach (ICD-10-PCS; 2020-04-02)
PROC: 0W9B00Z Drainage of Left Pleural Cavity with Drainage Device, Open Approach (ICD-10-PCS; 2020-04-02)
PROC: 30233N1 Transfusion of Nonautologous Red Blood Cells into Peripheral Vein, Percutaneous Approach (ICD-10-PCS; 2020-04-02)
PROC: 30233K1 Transfusion of Nonautologous Frozen Plasma into Peripheral Vein, Percutaneous Approach (ICD-10-PCS; 2020-04-02)
PROC: 0DB80ZZ Excision of Small Intestine, Open Approach (ICD-10-PCS; 2020-04-04)
PROC: 0FQ00ZZ Repair Liver, Open Approach (ICD-10-PCS; 2020-04-04)
PROC: 0DH67UZ Insertion of Feeding Device into Stomach, Via Natural or Artificial Opening (ICD-10-PCS; 2020-04-04)
DX: S21.312A Laceration without foreign body of left front wall of thorax with penetration into thoracic cavity, initial encounter (principal); R57.8 Other shock; S35.291A Minor laceration of branches of celiac and mesenteric artery, initial encounter; J96.00 Acute respiratory failure, unspecified whether with hypoxia or hypercapnia; T79.0XXA Air embolism (traumatic), initial encounter; S11.21XA Laceration without foreign body of pharynx and cervical esophagus, initial encounter; D62 Acute posthemorrhagic anemia; E87.0 Hyperosmolality and hypernatremia; S36.893A Laceration of other intra-abdominal organs, initial encounter; K65.4 Sclerosing mesenteritis; S15.01 Minor laceration of carotid artery; S36.33XA Laceration of stomach, initial encounter; K52.1 Toxic gastroenteritis and colitis; S27.803A Laceration of diaphragm, initial encounter; Z20.822 Contact with and (suspected) exposure to COVID-19; J39.2 Other diseases of pharynx; E83.39 Other disorders of phosphorus metabolism; D69.6 Thrombocytopenia, unspecified; E87.6 Hypokalemia; F10.10 Alcohol abuse, uncomplicated; R41.0 Disorientation, unspecified; S41.012A Laceration without foreign body of left shoulder, initial encounter; S21.212A Laceration without foreign body of left back wall of thorax without penetration into thoracic cavity, initial encounter; S61.012A Laceration without foreign body of left thumb without damage to nail, initial encounter; Z78.1 Physical restraint status; W26.0XXA Contact with knife, initial encounter; Y92.009 Unspecified place in unspecified non-institutional (private) residence as the place of occurrence of the external cause; S26.92XA Laceration of heart, unspecified with or without hemopericardium, initial encounter; T36.1X5A Adverse effect of cephalosporins and other beta-lactam antibiotics, initial encounter; Y92.230 Patient room in hospital as the place of occurrence of the external cause
CPT/HCPCS: 36415; 36416; 36430; 51702; 71045; 71260; 74018; 74177; 80048; 80053; 80306; 80307; 81001; 82533; 82805; 83605; 83735; 84100; 85025; 85384; 85610; 85730; 86850; 86900; 86901; 88307; 90471; 90715; 94002; 94003; 96365; 96375; G0390; J0690; J1630; J1644; J1650; J1720; J1940; J2250; J2270; J2310; J2370; J2405; J2543; J3010; J3411; J3475; J3480; J3490; J7050; P9012; P9016; P9035; P9045; P9059; Q9967; S0028; U0002